=== PATIENT | male | born 1950 | race Caucasian/White ===

== ENCOUNTER 2017-03-18 14:10 | Day surgery (SDC) | payer BC ==
[~2017-03-18] VITALS: Ht 170.2 cm; Wt 68.3 kg
--- NOTE | ~2017-03-18 | OR ---
PATIENT'S NAME: SONIA MORALES [facility] AGE: 66 Y [address] ROOM: [place] [id number] LOCATION: [facility] [place] ADMIT DATE: 03/18/2017 OR/Procedure Report DISCHARGE DATE: 03/18/2017 FAMILY PHYSICIAN: Ean Mata MD ATTENDING PHYSICIAN: Rahel Bello SURGEON: Rahel Bello MD PUMP MECHANIC: DATE OF PROCEDURE: 03/18/2017 PREOPERATIVE DIAGNOSES: 1. Right mid ureter stone. 2. Right nephrolithiasis. POSTOPERATIVE DIAGNOSES: 1. Right mid ureter stone. 2. Right nephrolithiasis. PROCEDURE PERFORMED: Cystoscopy, stone manipulation, right stent placement. ANESTHESIA: MAC. COMPLICATIONS: None. INDICATION FOR PROCEDURE: The patient is a 66-year-old male with a 4 mm mid right ureter stone with obstruction and also a nonobstructing 4 to 5 mm right renal pelvic stone. DETAILS OF PROCEDURE: After informed consent was obtained, the patient was taken to the operating room. A MAC anesthetic was applied, and he was placed in a dorsal lithotomy position. The groin area was prepped and draped in normal sterile fashion. Cystoscope was introduced into the urethra and bladder without difficulty. The right ureteral orifice was cannulated with a guidewire up into the renal pelvis. Next, a yellow Flexi-Tip catheter was then introduced over the guidewire up to the level of the stone. This was then used to manipulate the stone up into the renal pelvis. Following this, the Flexi-Tip catheter was removed and a 6-Nauruan multi-length ureteral stent was passed over the guidewire up into the renal pelvis. Radiographic imaging showed good positioning of the stent. The bladder was then emptied and the procedure was terminated. The patient tolerated the procedure well and was transferred to the recovery room in good condition. The patient will have ESWL in the near future. PATIENT'S NAME: SONIA MORALES [facility] AGE: 66 Y [address] ROOM: [place], [place] [id number] LOCATION: [facility] [place] ADMIT DATE: 03/18/2017 OR/Procedure Report DISCHARGE DATE: 03/18/2017 FAMILY PHYSICIAN: Ean Mata MD ATTENDING PHYSICIAN: Rahel Bello MD LEW/jennyl /[id number] CC: Ean Mata MD d: 03/19/17 0046 t: 03/25/17 1454, OPERATIVE SUMMARY
[2017-03-18] MEDS ORDERED: ASPIRIN (CHILDR81 MG PO (14:40)
[2017-03-18] MEDS ORDERED: TRICOR145 MG PO (14:41)
[2017-03-18] MEDS ORDERED: FISH OIL 1,0001 EAC1 PO (14:42)
[2017-03-18] MEDS ORDERED: HYDRODIURIL25 MG PO (14:44)
[2017-03-18] MEDS ORDERED: METOPROLOL-HCT1 EACH PO (14:45)
[2017-03-18] MEDS ORDERED: THERA-VITE W/ B1 TAB PO (14:46)
[2017-03-18] MEDS ORDERED: PROZAC20 MG PO (14:46)
[2017-03-18] MEDS ORDERED: ALTACE5 MG PO (14:47)
[2017-03-18] MEDS ORDERED: ASCORBIC ACID500 MG PO (14:47)
[2017-03-18] MEDS ORDERED: VIAGRA100 MG PO (14:47)
[2017-03-18 15:01] LABS: BASOPHIL % 0.2 %; HEMATOCRIT 41.1 % (37.0-53.0); HEMOGLOBIN 13.7 g/dL (11.0-16.0); IMMATURE GRANULOCYTE # 0.1 K/uL (0.0-0.3); IMMATURE GRANULOCYTE % 0.4 %; LYMPHOCYTE # 1.5 K/uL (0.8-4.0); LYMPHOCYTE % 11.3 %; MCH 31.6 pg (27.0-34.0); MCHC 33.3 gm/dL (32.0-36.5); MCV 94.9 fl (83.0-98.0); MONOCYTE # 0.8 K/uL (0.0-1.0); MONOCYTE % 6.3 %; MPV 9.6 fl (9.4-12.4); NEUTROPHIL # (ANC) 10.8 K/uL (1.4-9.0); NEUTROPHIL % 81.8 %; NRBC % 0 /100WBC (0-0.00); PLATELET COUNT 226 K/uL (150-450); RBC 4.33 M/uL (3.50-5.50); RDW-CV 12.4 % (11.9-14.6); WBC 13.2 K/uL (4.0-11.0)
[2017-03-18 15:19] LABS: ALBUMIN 3.7 gm/dL (3.5-5.0); ANION GAP 11.2 (10.0-19.0); CALCIUM 8.8 mg/dL (8.5-10.5); POTASSIUM 4.2 mMol/L (3.7-5.1); TOTAL BILIRUBIN 0.4 mg/dL (0.0-1.5)
[2017-03-18] MEDS ORDERED: TYLENOL WITH C1 EACH PO (19:26)
== END 2017-03-18 20:00 | disposition disaster alternative care site (69) ==
LOC: GSDC 14:10
PROVIDERS: Urology
PROC: 0T768DZ Dilation of Right Ureter with Intraluminal Device, Via Natural or Artificial Opening Endoscopic (ICD-10-PCS; principal; 2017-03-18)
PROC: 0TN Urinary System, Release (ICD-10-PCS; 2017-03-18)
DX: N13.2 Hydronephrosis with renal and ureteral calculous obstruction (principal); I10 Essential (primary) hypertension; E78.2 Mixed hyperlipidemia; N28.9 Disorder of kidney and ureter, unspecified; Z88.1 Allergy status to other antibiotic agents; Z79.82 Long term (current) use of aspirin; Z79.899 Other long term (current) drug therapy; Z90.79 Acquired absence of other genital organ(s); Z98.890 Other specified postprocedural states
CPT/HCPCS: C1769; J1100; J1956; J2001; J2405; J7030